=== PATIENT | female | born 1990 | race Caucasian/White ===

== ENCOUNTER 2016-12-21 11:25 | Emergency (ER) | payer OTHER ==
[~2016-12-21] VITALS: Ht 154.9 cm; Wt 133.6 kg
[~2016-12-21 11:25] MED LIST: CEPH-443 PO; HYDR-902 PO; IBUP800T25 PO; LEVO300T5 PO; PERCOCET PO; PREN-39 PO
[2016-12-21 11:42] VITALS: Ht 154.9 cm; Wt 133.6 kg
[2016-12-21] MEDS ORDERED: AZIT250T94 PO (13:18)
[2016-12-21] MEDS ORDERED: PSEU30TA38 PO (13:18)
[2016-12-21] MEDS ORDERED: FLUT9.9S NASAL (13:18)
[2016-12-21] MEDS ORDERED: IBUP-1542 PO (13:18)
[2016-12-21] MEDS ORDERED: IBUPROFEN 600 MG TAB PO ONE (13:30)
--- NOTE | 2016-12-21 14:26 | ERD ---
DATE OF SERVICE: 12/21/2016 HISTORY OF PRESENT ILLNESS: The patient is a 26-year-old female complaining of sore throat and a co ugh that started 3 days ago. She had tactile fevers, mild cough which is dry, positive runny nose. Positive sick contacts at home. She took Tylenol this morning, but no medications since. No vomit ing, no abdominal pain. No change in urination. No change in bowel movements. No headaches. PAST MEDICAL HISTORY: Hypothyroidism. ALLERGIES TO MEDICATIONS: DENIES. PAST SURGICAL HISTORY: . SOCIAL HISTORY: Denies. REVIEW OF SYSTEMS: A 12-point review of systems was done. Refer to HPI for positives, all other sy stems negative. PHYSICAL EXAMINATION VITAL SIGNS: Temperature is 97.4, pulse 85, blood pressure is 140/81, respiratory rate 20, O2 satur ation 100% on room air. Pain intensity is 7/10. GENERAL: The patient is well-appearing, well-nourished, no acute distress. HEENT: Atraumatic. Conjunctivae are pink. Pupils equal, round, and reactive to light. There is no s cleral icterus. Tympanic membranes clear bilaterally. Oropharynx clear. No nystagmus or photophobia . CHEST: Clear to auscultation bilaterally. There are no rales, wheezes or rhonchi. HEART: Regular rate and rhythm. No murmurs, clicks, rubs or gallops. No S3 or S4. ABDOMEN: Soft, nontender and nondistended. Good bowel sounds. No rebound or guarding. No gross ana tonitis. No gross organomegaly or masses. No Haynes sign or McBurney point tenderness. DIAGNOSIS: Upper respiratory infection. MEDICAL DECISION MAKING: I have low suspicion for meningitis or sepsis. The patient will be treate d with antibiotics given she does have erythematous red throat, but I have low suspicion for bacteri al HEENT infection. Low suspicion for pneumonia. Low suspicion for acute abdomen or sepsis. DISCHARGE: The patient is discharged stable. The patient is given a prescription for fluticasone, ibuprofen, Sudafed and azithromycin, and told to follow up with primary care within 1 to 2 days for reevaluation. The patient was told if symptoms progress or worsen, to return to the ER. All other questions answered at time of discharge. Discharge summary given at the time of departure. The pat ient understood and complied with plan. Dictated By: EDIE CARD for CATERINA QIU/RUSS Conf#: [id number] DID#: [id number]
== END 2016-12-21 13:30 | disposition home or self-care (01) ==
LOC: FTE 11:25
DX: J06.9 Acute upper respiratory infection, unspecified (principal); E03.9 Hypothyroidism, unspecified
CPT/HCPCS: Z7502; Z7610; 99283

== ENCOUNTER 2018-08-24 13:22 | Emergency (ER) | END 2018-08-24 14:35 | disposition home or self-care (01) ==

== ENCOUNTER 2019-02-11 13:50 | Emergency (ER) | payer OTHER ==
[~2019-02-11] VITALS: Ht 154.9 cm; Wt 152.0 kg
[~2019-02-11 13:50] MED LIST changes: +AZIT250T PO; +CIPR2.5D11 OP; +FLUT9.9S NASAL; +HYDR-3980 PO; -HYDR-902 PO; +IBUP-1542 PO; +IBUP-1544 PO; -IBUP800T25 PO; +IBUP800T48 PO; +PSEU30TA38 PO
[2019-02-11 13:55] VITALS: BP 142/76; PULSE 82; RESP 18; Ht 154.9 cm; Wt 152.0 kg
[2019-02-11] MEDS ORDERED: ELIM TOP (14:48)
[2019-02-11] MEDS ORDERED: TRIA15CR55 TOP (14:48)
[2019-02-11] MEDS ORDERED: BEN25 PO (14:48)
--- NOTE | 2019-02-11 14:51 | ERD ---
ER Documentation Chief Complaint Chief Complaint pt is bib self with c/o rash to arms and hands x 1 wk HPI 28-year-old female presents with rash in the bilateral arms and hands for last week. She has lesions on her right forearm but has lesions in between her fingers as well. She denies any hotels or new dwelling's. There are no other family members with similar rashes patient has fevers, cough, shortness of breath chest pain or abdominal pain or additional symptoms. Denies previous allergies or similar rashes. ROS All systems reviewed and are negative except as per history of present illness. Medications Home Meds Active Scripts Permethrin* (Elimite*) 5% Cr, 1 APPLIC TOP ONCE for 7 Days, TUB Prov:FORTUNATO OVERTON MD 02/11/19 Diphenhydramine Hcl* (Benadryl*) 25 Mg Cap, 25 MG PO Q6, #15 CAP Prov:FORTUNATO OVERTON MD 02/11/19 Triamcinolone Acetonide (Triamcinolone Acetonide) 0.1% - 15 Gm Cream.gm., 1 APPLIC TOP BID for 10 Days, #1 TUB 30 g okay. Prov:FORTUNATO OVERTON MD 02/11/19 Ibuprofen* (Motrin*) 600 Mg Tab, 600 MG PO Q6, #15 TAB Prov:FORTUNATO OVERTON MD 08/24/18 Ciprofloxacin Hcl (Ciprofloxacin Hcl) 2.5 Ml Drops, 2.5 ML OP BID for 7 Days, #1 BOTTLE Prov:FORTUNATO OVERTON MD 08/24/18 Ibuprofen* (Motrin*) 600 Mg Tab, 600 MG PO Q6H PRN for PAIN AND OR ELEVATED TEMP, #30 TAB Prov:CHELI CARRILLO PA-C 12/21/16 Fluticasone Propionate (Flonase Allergy Relief) 9.9 Ml [place].susp, 1 SPRAY NASAL DAILY, #1 BOTTLE TO EACH NOSTRIL Prov:CHELI CARRILLO PA-C 12/21/16 Pseudoephedrine Hcl* (Pseudoephedrine Hcl*) 30 Mg Tablet, 30 MG PO Q6 PRN for CONGESTION, #30 TAB Prov:CHELI CARRILLO PA-C 12/21/16 Azithromycin* (Zithromax*) 250 Mg Tablet, 250 MG PO .ZPACK DIRECTED, #6 TAB TAKE 500 MG (2 TABS) THE FIRST DAY THEN 250 MG (1 TAB) DAYS 2-5 Prov:CHELI CARRILLO PA-C 12/21/16 Hydrocodone/Acetaminophen ([place] 10-325 Tablet) 1 Each Tablet, 1 TAB PO Q6H PRN for PAIN, #14 TAB Prov:FORTUNATO OVERTON MD 09/17/16 Ibuprofen* (Motrin*) 800 Mg Tab, 800 MG PO Q6, #20 TAB Prov:FORTUNATO OVERTON MD 09/17/16 Cephalexin* (Keflex*) 500 Mg Capsule, 500 MG PO QID for 5 Days, CAP Prov:SIDDHARTH GONZALEZ NP 09/23/15 Oxycodone Hcl/Acetaminophen (Percocet) 1 Tab Tab, 2 TAB PO Q4H PRN for PAIN LEVEL 6-10, #30 TAB 0 Refills Prov:ALICE MALONE MD 08/29/15 Ibuprofen* (Ibuprofen*) 800 Mg Tab, 800 MG PO Q8, #20 0 Refills Prov:ALICE MALONE MD 08/29/15 Reported Medications Vits W-Ca,Fe,Fa(<1MG) ( Vitamins) 1 Tab Tablet, 1 TAB PO DAILY 08/03/15 Levothyroxine Sodium* (Levothyroxine Sodium*) 300 Mcg Tablet, 300 MCG PO AC BREAKFAST, TAB 05/15/14 Allergies Allergies: Coded Allergies: No Known Allergy (Unverified , 09/17/16) PMhx/Soc History of Surgery: Yes ( 1-MONTH AGO) Anesthesia Reaction: No Hx Neurological Disorder: No Hx Respiratory Disorders: No Hx Cardiac Disorders: Yes (PREECLAMPSIA) Hx Psychiatric Problems: No Hx Miscellaneous Medical Probl: Yes (HYPOTHYROID) Hx Alcohol Use: No Hx Substance Use: No Hx Tobacco Use: No Smoking Status: Never smoker Physical Exam Vitals Vital Signs Date Temp Pulse Resp B/P (MAP) Pulse Ox O2 O2 Flow FiO2 Time Delivery Rate 02/11/19 82 18 142/76 98 13:55 (98) Physical Exam Const: No acute distress Head: Atraumatic Eyes: Normal Conjunctiva ENT: Normal External Ears, Nose and Mouth. Neck: Full range of motion. No meningismus. Resp: Clear to auscultation bilaterally Cardio: Regular rate and rhythm, no murmurs Abd: Soft, non tender, non distended. Normal bowel sounds Skin: No petechiae or purpura. Erythematous maculopapular or slightly ring- shaped and serpiginous lesions on the forearm and less so between the digits. No induration, streaking, fluctuance, discharge. Back: No midline or flank tenderness Ext: No cyanosis, or edema Neur: Awake and alert Psych: Normal Mood and Affect Procedures/MDM She presents with nonspecific dermatitis on the forearms and hands. There is no signs of cellulitis, purpura, life-threatening rashes. Patient does not have a rash which is classic for scabies although given serpiginous lesions between the fingers we will treat empirically. Patient will be treated with permethrin, t riamcinolone, Benadryl, primary care follow-up and return precautions. The patient was stable with no new complaints during the ER course. Clinically, there is no current evidence to suggest meningitis, sepsis, acute abdomen, pneumonia, stroke, acute coronary syndrome, pulmonary embolism, aortic dissection or any other emergent condition appearing to require further evaluation or hospitalization. Patient counseled regarding my diagnostic impression and care plan. Prior to discharge all questions answered. Pt agrees with treatment plan and understands strict return precautions. Pt is instructed to follow up with primary care provider within 24-48 hours. Precautionary instructions provided including instructions to return to the ER if not improving or for any worsening or changing symptoms or concerns. Departure Diagnosis: Primary Impression: Rash Condition: Stable Patient Instructions: Scabies, Dermatitis, Non-Specific Additional Instructions: May be nonspecific dermatitis but will treat for scabies. Recheck for new or worsening symptoms with primary care doctor. May be contagious. Recommend evaluation for family members if they develop rashes. FORTUNATO OVERTON MD Feb 11, 2019 14:51
== END 2019-02-11 15:28 | disposition home or self-care (01) ==
LOC: FTE 13:50
DX: R21 Rash and other nonspecific skin eruption (principal); E03.9 Hypothyroidism, unspecified
CPT/HCPCS: 99283